=== PATIENT | male | born 1955 | race Two or more races ===

== ENCOUNTER 2020-02-17 02:10 | Inpatient (IN) | payer OTHER, MEDICAID ==
[~2020-02-17] VITALS: Ht 175.3 cm; Wt 78.0 kg
[~2020-02-17 02:10] MED LIST: INSUPOW
[2020-02-17] MEDS ORDERED: DEXTROSE (50%) 50ML SYRG IV ONE ×2 (02:30→02:45)
[2020-02-17] MEDS ORDERED: ACCU-CHEK COMFORT CURVE STRIP VI ONE ×2 (02:30→02:45)
[2020-02-17 02:46] LABS: Basophils # (auto) 0 10 ^3/uL (0-0.2); Basophils % (auto) 0.7 % (0.0-2.0); Eosinophils # (auto) 0.2 10 ^3/uL (0-0.8); Hematocrit 39.4 % (41.0-53.0); Hemoglobin 13.5 g/dL (13.5-17.5); Lymphocytes # (auto) 1.6 10 ^3/uL (0.4-5.4); Mean Corpuscular Hemoglobin 30.8 pg (28.0-32.0); Mean Corpuscular Hgb Conc. 34.3 g/dL (32.0-36.0); Mean Corpuscular Volume 89.6 fL (80.0-100.0); Monocytes # (auto) 0.4 10 ^3/uL (0-1.3); Monocytes % (auto) 7.1 % (0.0-12.0); Neutrophils # (auto) 3.3 10 ^3/uL (1.6-8.6); Neutrophils % (auto) 59.2 % (37.0-80.0); Nucleated Red Blood Cells % 0.1 %; Platelet Count (auto) 152 10^3/uL (140-450); Red Cell Distribution Width 13.4 % (11.8-14.3); White Blood Cell 5.7 10^3/uL (4.4-10.8)
[2020-02-17 03:07] LABS: INR 0.97 (0.9-1.15); Partial Thromboplastin Time 25.4 sec (23.64-32.05)
[2020-02-17 03:08] LABS: BUN/Creatinine Ratio 14.3; Potassium 3.2 mmol/L (3.5-5.1)
[2020-02-17 03:11] LABS: Bilirubin, Total 0.4 mg/dL (0.2-1.0); Total Protein 6.3 g/dL (6.4-8.2)
[2020-02-17] MEDS ORDERED: DEXTROSE 10% 1,000 ML IV ONE (04:15)
[2020-02-17] MEDS ORDERED: ONDANSETRON HCL 4 MG/2 ML VIAL IV PRN (06:15)
[2020-02-17] MEDS ORDERED: NITROGLYCERIN 0.4 MG SL TAB SL PRN (06:15)
[2020-02-17] MEDS ORDERED: DEXTROSE (50%) 50ML SYRG IV PRN (06:15)
[2020-02-17] MEDS ORDERED: TEMAZEPAM 15 MG CAP PO PRN (06:15)
[2020-02-17] MEDS ORDERED: DEXTROSE 10% 1,000 ML IV SCH (06:15)
[2020-02-17] MEDS ORDERED: MORPHINE SULF INJ 2 MG/ML SYRINGE 1ML IV PRN (06:15)
[2020-02-17] MEDS ORDERED: ACETAMINOPHEN 325 MG TAB PO PRN (06:15)
[2020-02-17] MEDS: ACCU-CHEK COMFORT CURVE STRIP VI SCH ×3 (08:04→16:00)
[2020-02-17] MEDS: InsuLIN REG 1unit/0.01ml Soln (100units/ml) SC SCH ×3 (08:04→16:00)
[2020-02-17 08:31] LABS: Urine Bacteria FEW /hpf (None Seen); Urine Blood Negative /uL (Negative); Urine Mucus FEW (None Seen); Urine Specific Gravity 1.019 (1.001-1.035); Urine WBC 1 /hpf (0 - 3)
[2020-02-17 08:59] VITALS: BP 153/86
[2020-02-17] MEDS ORDERED: ENOXAPARIN SOD 40 MG/0.4 ML SYRINGE SC SCH (10:00)
[2020-02-17] MEDS ORDERED: LISINOPRIL 5 MG TAB PO SCH (10:00)
[2020-02-17] MEDS ORDERED: FAMOTIDINE 20 MG TAB PO SCH (10:00)
[2020-02-17] MEDS ORDERED: CARVEDILOL 3.125 MG TAB PO SCH (10:00)
[2020-02-17] MEDS ORDERED: PNEUMOCOCCAL VACC POLYS 25 MCG/0.5 ML VIAL IM ONE (10:45)
[2020-02-17] MEDS ORDERED: POTASSIUM CHL 20 Meq TABLET PO ONE (10:45)
[2020-02-17 13:00] VITALS: BP 128/73
[2020-02-17 15:28] VITALS: BP 128/73
== END 2020-02-17 16:20 | disposition home health service (06) | DRG 637 ==
LOC: ER 02:10 → EDUNIT# 02:10 → EDBD 02:10 → TELE 02:11 → TELE-WESTW 08:42
PROVIDERS: ADMIT Nurse Practitioner; ATTEND Internal Medicine
DX: E10.649 Type 1 diabetes mellitus with hypoglycemia without coma (principal); G93.41 Metabolic encephalopathy; E78.5 Hyperlipidemia, unspecified; F17.200 Nicotine dependence, unspecified, uncomplicated; I10 Essential (primary) hypertension; I69.30 Unspecified sequelae of cerebral infarction; T38.3X5A Adverse effect of insulin and oral hypoglycemic [antidiabetic] drugs, initial encounter; Y92.89 Other specified places as the place of occurrence of the external cause
CPT/HCPCS: 36415; 70450; 80053; 81001; 82962; 85025; 85610; 85730; 93005; 99291; G0378; J1815

== ENCOUNTER 2022-02-08 09:29 | Inpatient (IN) | payer OTHER, MEDICAID ==
[~2022-02-08] VITALS: Ht 170.2 cm; Wt 72.0 kg
[2022-02-08] MEDS ORDERED: SODIUM CHLORIDE 0.9% 1,000 ML IV ONE ×5 (09:45→12:00)
[2022-02-08] MEDS ORDERED: InsuLIN REG 1unit/0.01ml Soln (100units/ml) ONE (10:16)
[2022-02-08] MEDS ORDERED: InsuLIN REG 1unit/0.01ml Soln (100units/ml) IV ONE ×2 (10:30→12:15)
[2022-02-08 11:13] LABS: Hemoglobin 11.8 g/dL (13.5-17.5); Mean Corpuscular Hemoglobin 33.6 pg (28.0-32.0); Mean Corpuscular Volume 119.7 fL (80.0-100.0); Red Blood Cells 3.51 10^6/uL (4.5-5.90); Red Cell Distribution Width 14.8 % (11.8-14.3); White Blood Cell 10.2 10^3/uL (4.4-10.8)
[2022-02-08 11:29] LABS: Basophils % (manual) 0 (0.0-2.0); Blast Cells 0; Eosinophils % (manual) 0 (0-7); Myelocytes % 0; Promyelocytes % 0; Reactive Lymphocytes 0
[2022-02-08] MEDS ORDERED: SODIUM BICARBONATE 8.4% INJ 50ML SYRINGE ONE (11:42)
[2022-02-08] MEDS ORDERED: SODIUM BICARBONATE 8.4 % INJ 50ML VIAL IV ONE ×2 (11:45→12:15)
[2022-02-08 11:49] LABS: Chloride 105 mmol/L (98-107)
[2022-02-08 11:50] LABS: Bilirubin, Total 0.6 mg/dL (0.2-1.0); Blood Urea Nitrogen 23 mg/dL (7-18); Calcium 7.6 mg/dL (8.5-10.1); GFR Non-African American 38 mL/min; Total Protein 5.9 g/dL (6.4-8.2)
[2022-02-08 11:51] LABS: Alanine Aminotransferase 531 U/L (16-61); Albumin 2.7 g/dL (3.4-5.0); Alkaline Phosphatase 117 U/L (45-117); Anion Gap 30 (5-15); GFR African American 45 mL/min; Magnesium 3.3 mg/dL (1.6-2.6); Sodium 137 mmol/L (136-145)
[2022-02-08 11:55] LABS: Carbon Dioxide 2 mmol/L (21-32); Potassium 6.6 mmol/L (3.5-5.1)
[2022-02-08] MEDS ORDERED: InsuLIN R (HUMAN) 100 UNITS in SODIUM CHL 0.9% 99 ML IV SCH ×6 (12:00→18:15)
[2022-02-08] MEDS ORDERED: FUROSEMIDE 40 MG/4 ML VIAL IV ONE (12:00)
[2022-02-08] MEDS ORDERED: INSULIN LANTUS (GLARGINE) 1 /0.01ml (100units/ml) SC ONE (12:00)
[2022-02-08] MEDS ORDERED: SODIUM ZIRCONIUM CYCL 10 GM PAK PO ONE (12:00)
[2022-02-08] MEDS ORDERED: DEXTROSE (50%) 50ML SYRG IV PRN ×2 (12:00→18:00)
[2022-02-08] MEDS ORDERED: SODIUM BICARBONATE 8.4% INJ 50ML SYRINGE IV ONE (12:00)
[2022-02-08] MEDS ORDERED: ALBUTEROL SULF 2.5 MG/0.5ML(0.5%) NEB SOLN NEB ONE (12:00)
[2022-02-08] MEDS ORDERED: PIPERACILLIN-TAZOB 3.375GM 100 ML IV ONE (12:00)
[2022-02-08] MEDS ORDERED: CALCIUM GLUC 1,000mg/50ml-NS 50 ML IV ONE (12:00)
[2022-02-08 12:24] LABS: Glucose 763 mg/dL (74-106)
[2022-02-08 12:35] LABS: Band Neutrophils % (manual) 36; Lymphocytes % (manual) 22 (10.0-50.0); Metamyelocytes % 4; Monocytes % (manual) 8 (0-12)
[2022-02-08] MEDS: ACCU-CHEK COMFORT CURVE STRIP VI SCH ×7 (12:38→22:30)
[2022-02-08 12:55] LABS: Aspartate Aminotransferase 985 U/L (15-37)
[2022-02-08] MEDS: SODIUM CHLORIDE 0.9% 1,000 ML IV SCH ×3 (12:59→18:02)
[2022-02-08] MEDS ORDERED: NOREPINEPHRINE 8 MG/250ML KIT 250 ML IV ONE (13:50)
[2022-02-08] MEDS ORDERED: dilTIAZem 25 MG/5 ML VIAL IV ONE (14:45)
[2022-02-08] MEDS ORDERED: NOREPINEPHRINE 8 MG/250ML KIT 250 ML IV SCH (15:30)
[2022-02-08 15:41] LABS: Albumin 2.6 g/dL (3.4-5.0); BUN/Creatinine Ratio 13.5; Calcium 6.8 mg/dL (8.5-10.1)
[2022-02-08] MEDS ORDERED: dilTIAZem 25 MG/5 ML VIAL IV PRN (15:45)
[2022-02-08 15:49] LABS: Bilirubin, Total 0.6 mg/dL (0.2-1.0)
[2022-02-08] MEDS ORDERED: SODIUM CHLORIDE 0.9% 1,000 ML IV SCH (16:00)
[2022-02-08] MEDS: LORazepam 2MG/ML-1ML VIAL IV PRN (16:40)
[2022-02-08 17:28] LABS: Sodium Urine 80 mmol/L (40-220)
[2022-02-08 17:38] LABS: Creatinine, Urine 13 mg/dL (30.0-125.0)
[2022-02-08 18:00] LABS: Urine Bacteria NONE SEEN /hpf (None Seen); Urine Blood 2+ /uL (Negative); Urine Hyaline Cast FEW /lpf (0 - 2); Urine Mucus FEW (None Seen); Urine Specific Gravity 1.013 (1.001-1.035); Urine WBC 1 /hpf (0 - 3)
[2022-02-08] MEDS ORDERED: HEPARIN SODIUM (PORCINE) 5000 UNITS/ML 1ML VIAL IV ONE (18:45)
[2022-02-08 19:53] LABS: INR 1.2 (0.9-1.15); Partial Thromboplastin Time 22.8 sec (23.6-33.0)
[2022-02-08 20:04] LABS: Calcium 7.1 mg/dL (8.5-10.1); Potassium 4.5 mmol/L (3.5-5.1)
[2022-02-08 20:16] LABS: BUN/Creatinine Ratio 11.9
[2022-02-08] MEDS: HEPARIN DRIP/D5W 100UNITS/ML 250 ML IV SCH (20:46)
[2022-02-08 21:47] LABS: Eosinophils # (auto) 0 10 ^3/uL (0-0.8); Nucleated Red Blood Cells % 0.2 %; Red Cell Distribution Width 14.9 % (11.8-14.3)
[2022-02-08 21:48] LABS: Basophils # (auto) 0 10 ^3/uL (0-0.2); Basophils % (auto) 0.5 % (0.0-2.0); Eosinophils % (auto) 0.4 % (0.0-7.0); Hemoglobin 11.2 g/dL (13.5-17.5); Lymphocytes # (auto) 1.1 10 ^3/uL (0.4-5.4); Lymphocytes % (auto) 11.5 % (10.0-50.0); Mean Corpuscular Hemoglobin 33.8 pg (28.0-32.0); Mean Corpuscular Hgb Conc. 30.4 g/dL (32.0-36.0); Mean Corpuscular Volume 111.4 fL (80.0-100.0); Monocytes # (auto) 0.5 10 ^3/uL (0-1.3); Monocytes % (auto) 5.4 % (0.0-12.0); Neutrophils # (auto) 7.7 10 ^3/uL (1.6-8.6); Neutrophils % (auto) 82.2 % (37.0-80.0); Red Blood Cells 3.32 10^6/uL (4.5-5.90); White Blood Cell 9.4 10^3/uL (4.4-10.8)
[2022-02-08] MEDS ORDERED: SODIUM BICARBONATE 50ML VIAL 100 ML in SOD CHL 0.45% 1,000 ML IV ONE (22:00)
[2022-02-08] MEDS ORDERED: CALCIUM GLUC 1,000mg/50ml-NS 100 ML IV ONE (22:00)
[2022-02-08] MEDS ORDERED: SODIUM BICARBONATE 50ML VIAL 100 ML in SOD CHL 0.45% 1,000 ML IV SCH ×4 (22:15)
[2022-02-08] MEDS: SODIUM BICARBONATE 50ML VIAL 100 ML in SOD CHL 0.45% 1,000 ML IV SCH (22:44)
[2022-02-08 23:00] LABS: Calcium 7.2 mg/dL (8.5-10.1)
[2022-02-08] MEDS: VALPROATE INJ 500 MG in SODIUM CHL 0.9% 100 ML IV SCH (23:00)
[2022-02-08 23:09] LABS: BUN/Creatinine Ratio 11.9
[2022-02-09] MEDS: LORazepam 2MG/ML-1ML VIAL IV PRN ×3 (00:05→22:23)
[2022-02-09] MEDS: SODIUM CHLORIDE 0.9% 1,000 ML IV SCH ×2 (00:40→07:20)
[2022-02-09] MEDS: ACCU-CHEK COMFORT CURVE STRIP VI SCH ×12 (01:30→20:00)
[2022-02-09 05:26] LABS: INR 1.28 (0.9-1.15); Partial Thromboplastin Time 48.1 sec (23.6-33.0)
[2022-02-09] MEDS: SODIUM BICARBONATE 50ML VIAL 100 ML in SOD CHL 0.45% 1,000 ML IV SCH (06:04)
[2022-02-09 06:47] LABS: BUN/Creatinine Ratio 9.6; Calcium 7.6 mg/dL (8.5-10.1)
[2022-02-09 06:51] LABS: Potassium 2.8 mmol/L (3.5-5.1)
[2022-02-09] MEDS ORDERED: D5W/SOD CHL 0.45%/KCL 20MEQ 1,000 ML IV ONE (07:00)
[2022-02-09] MEDS: VALPROATE INJ 500 MG in SODIUM CHL 0.9% 100 ML IV SCH ×2 (10:00→23:28)
[2022-02-09] MEDS: INSULIN LANTUS (GLARGINE) 1 /0.01ml (100units/ml) SC SCH (10:00)
[2022-02-09 11:26] LABS: Basophils # (auto) 0.1 10 ^3/uL (0-0.2); Eosinophils # (auto) 0 10 ^3/uL (0-0.8); Lymphocytes # (auto) 0.3 10 ^3/uL (0.4-5.4); Monocytes # (auto) 0.2 10 ^3/uL (0-1.3); Neutrophils # (auto) 4.7 10 ^3/uL (1.6-8.6); Nucleated Red Blood Cells % 0.1 %; Red Blood Cells 2.24 10^6/uL (4.5-5.90)
[2022-02-09 11:28] LABS: Eosinophils % (auto) 0.1 % (0.0-7.0); Hematocrit 23.4 % (41.0-53.0); Hemoglobin 7.5 g/dL (13.5-17.5); Lymphocytes % (auto) 5.3 % (10.0-50.0); Mean Corpuscular Hemoglobin 33.6 pg (28.0-32.0); Mean Corpuscular Hgb Conc. 32.3 g/dL (32.0-36.0); Mean Corpuscular Volume 104.1 fL (80.0-100.0); Monocytes % (auto) 3.4 % (0.0-12.0); Neutrophils % (auto) 90.2 % (37.0-80.0); Red Cell Distribution Width 13.9 % (11.8-14.3); White Blood Cell 5.2 10^3/uL (4.4-10.8)
[2022-02-09] MEDS ORDERED: PHENYTOIN IV DILANTIN 500 MG in SODIUM CHL 0.9% 100 ML IV ONE ×2 (12:30→14:00)
[2022-02-09 13:47] LABS: Basophils # (auto) 0 10 ^3/uL (0-0.2); Basophils % (auto) 0.2 % (0.0-2.0); Eosinophils # (auto) 0 10 ^3/uL (0-0.8); Hematocrit 32.1 % (41.0-53.0); Hemoglobin 11.1 g/dL (13.5-17.5); Lymphocytes # (auto) 0.4 10 ^3/uL (0.4-5.4); Lymphocytes % (auto) 5.3 % (10.0-50.0); Mean Corpuscular Hemoglobin 33.1 pg (28.0-32.0); Mean Corpuscular Hgb Conc. 34.7 g/dL (32.0-36.0); Mean Corpuscular Volume 95.3 fL (80.0-100.0); Monocytes # (auto) 0.2 10 ^3/uL (0-1.3); Monocytes % (auto) 3.3 % (0.0-12.0); Neutrophils # (auto) 6.7 10 ^3/uL (1.6-8.6); Neutrophils % (auto) 91.2 % (37.0-80.0); Nucleated Red Blood Cells % 0.1 %; Red Blood Cells 3.37 10^6/uL (4.5-5.90); Red Cell Distribution Width 12.8 % (11.8-14.3); White Blood Cell 7.4 10^3/uL (4.4-10.8)
[2022-02-09 14:05] LABS: BUN/Creatinine Ratio 9.6; Calcium 7.4 mg/dL (8.5-10.1); Potassium 3.1 mmol/L (3.5-5.1)
[2022-02-09 14:14] LABS: Phosphorus 0.8 mg/dL (2.5-4.90)
[2022-02-09] MEDS ORDERED: POTASSIUM PHOSPHATE 44 MEQ in D5W 5% 250 ML IV ONE (14:30)
[2022-02-09] MEDS ORDERED: DEXTROSE (50%) 50ML SYRG IV PRN (15:00)
[2022-02-09] MEDS: HEPARIN DRIP/D5W 100UNITS/ML 250 ML IV SCH (15:55)
[2022-02-09] MEDS: InsuLIN REG 1unit/0.01ml Soln (100units/ml) SC SCH ×2 (16:12→21:45)
[2022-02-09] MEDS: SOD CHL 0.45% 1,000 ML IV SCH (16:59)
[2022-02-09 23:38] LABS: BUN/Creatinine Ratio 9.3; Calcium 7.4 mg/dL (8.5-10.1); Phosphorus 3.2 mg/dL (2.5-4.90); Potassium 3.9 mmol/L (3.5-5.1)
[2022-02-10] MEDS: ACCU-CHEK COMFORT CURVE STRIP VI SCH ×7 (00:27→23:44)
[2022-02-10] MEDS: InsuLIN REG 1unit/0.01ml Soln (100units/ml) SC SCH ×7 (00:30→23:44)
[2022-02-10] MEDS: SOD CHL 0.45% 1,000 ML IV SCH (00:30)
[2022-02-10 00:45] VITALS: BP 125/55
[2022-02-10 06:06] LABS: Basophils # (auto) 0 10 ^3/uL (0-0.2); Basophils % (auto) 0.1 % (0.0-2.0); Eosinophils # (auto) 0 10 ^3/uL (0-0.8); Lymphocytes # (auto) 0.6 10 ^3/uL (0.4-5.4); Lymphocytes % (auto) 7.8 % (10.0-50.0); Mean Corpuscular Hemoglobin 33.3 pg (28.0-32.0); Mean Corpuscular Hgb Conc. 34.5 g/dL (32.0-36.0); Mean Corpuscular Volume 96.3 fL (80.0-100.0); Monocytes # (auto) 0.4 10 ^3/uL (0-1.3); Monocytes % (auto) 4.7 % (0.0-12.0); Neutrophils # (auto) 6.8 10 ^3/uL (1.6-8.6); Neutrophils % (auto) 87.4 % (37.0-80.0); Red Blood Cells 3.32 10^6/uL (4.5-5.90); Red Cell Distribution Width 13.2 % (11.8-14.3); White Blood Cell 7.8 10^3/uL (4.4-10.8)
[2022-02-10 06:12] LABS: Potassium 3.3 mmol/L (3.5-5.1)
[2022-02-10 06:17] LABS: Albumin 2.4 g/dL (3.4-5.0); BUN/Creatinine Ratio 8.9; Calcium 7.4 mg/dL (8.5-10.1)
[2022-02-10 06:20] LABS: Bilirubin, Total 0.4 mg/dL (0.2-1.0); Total Protein 4.9 g/dL (6.4-8.2)
[2022-02-10 06:21] LABS: INR 1.08 (0.9-1.15); Partial Thromboplastin Time 25.6 sec (23.6-33.0)
[2022-02-10 07:46] VITALS: BP 147/83
[2022-02-10] MEDS: D5W 5% 1,000 ML IV SCH ×3 (08:56→22:55)
[2022-02-10 10:37] LABS: Calcium 7.4 mg/dL (8.5-10.1); Potassium 3.3 mmol/L (3.5-5.1)
[2022-02-10] MEDS: PHENYTOIN SODIUM 50 MG/ML 2ML VIAL IV SCH (10:37)
[2022-02-10 10:38] LABS: BUN/Creatinine Ratio 10.2
[2022-02-10] MEDS: LORazepam 2MG/ML-1ML VIAL IV PRN (10:38)
[2022-02-10] MEDS: INSULIN LANTUS (GLARGINE) 1 /0.01ml (100units/ml) SC SCH (10:47)
[2022-02-10] MEDS: POTASSIUM CHL 20MEQ/100ML 100 ML IV SCH ×2 (11:14→12:46)
[2022-02-10 12:06] VITALS: BP 143/78
[2022-02-10] MEDS ORDERED: DULA4.5I SC (13:14)
[2022-02-10] MEDS ORDERED: GLIP10TA9 PO (13:14)
[2022-02-10] MEDS ORDERED: DIVA500T13 PO (13:14)
[2022-02-10] MEDS ORDERED: INSU100I4 SC (13:14)
[2022-02-10] MEDS ORDERED: CHOL20007 PO (13:14)
[2022-02-10] MEDS ORDERED: CARV3.1240 PO (13:14)
[2022-02-10] MEDS ORDERED: ATOR40TA52 PO (13:14)
[2022-02-10] MEDS ORDERED: GABA300C10 PO (13:14)
[2022-02-10] MEDS ORDERED: DONE5TAB80 PO (13:14)
[2022-02-10] MEDS ORDERED: EMPA1TAB3 PO (13:14)
[2022-02-10 15:16] LABS: BUN/Creatinine Ratio 9.7; Calcium 7.1 mg/dL (8.5-10.1); Potassium 3.9 mmol/L (3.5-5.1)
[2022-02-10 17:09] VITALS: BP 115/63
[2022-02-10 18:25] LABS: BUN/Creatinine Ratio 9.4; Calcium 7.3 mg/dL (8.5-10.1); Potassium 3.5 mmol/L (3.5-5.1)
[2022-02-10 22:00] VITALS: BP 140/81
[2022-02-10 23:10] LABS: Calcium 7.4 mg/dL (8.5-10.1); Potassium 3.1 mmol/L (3.5-5.1)
[2022-02-10 23:12] LABS: BUN/Creatinine Ratio 10.2
[2022-02-11] MEDS: ACCU-CHEK COMFORT CURVE STRIP VI SCH ×6 (03:56→23:33)
[2022-02-11] MEDS: InsuLIN REG 1unit/0.01ml Soln (100units/ml) SC SCH ×6 (04:07→23:33)
[2022-02-11 05:01] VITALS: BP 127/63
[2022-02-11 06:27] LABS: Basophils # (auto) 0 10 ^3/uL (0-0.2); Basophils % (auto) 0.4 % (0.0-2.0); Eosinophils # (auto) 0.1 10 ^3/uL (0-0.8); Eosinophils % (auto) 0.7 % (0.0-7.0); Hematocrit 29.3 % (41.0-53.0); Hemoglobin 10.4 g/dL (13.5-17.5); Lymphocytes # (auto) 1.4 10 ^3/uL (0.4-5.4); Lymphocytes % (auto) 18.5 % (10.0-50.0); Mean Corpuscular Hemoglobin 33.4 pg (28.0-32.0); Mean Corpuscular Hgb Conc. 35.5 g/dL (32.0-36.0); Mean Corpuscular Volume 94.3 fL (80.0-100.0); Monocytes # (auto) 0.4 10 ^3/uL (0-1.3); Monocytes % (auto) 5.5 % (0.0-12.0); Neutrophils # (auto) 5.9 10 ^3/uL (1.6-8.6); Neutrophils % (auto) 74.9 % (37.0-80.0); Red Blood Cells 3.11 10^6/uL (4.5-5.90); Red Cell Distribution Width 13.2 % (11.8-14.3); White Blood Cell 7.8 10^3/uL (4.4-10.8)
[2022-02-11 06:51] LABS: BUN/Creatinine Ratio 9.9; Calcium 7.2 mg/dL (8.5-10.1)
[2022-02-11 07:05] LABS: Bilirubin, Total 0.4 mg/dL (0.2-1.0); Total Protein 4.3 g/dL (6.4-8.2)
[2022-02-11 07:11] LABS: Potassium 2.9 mmol/L (3.5-5.1)
[2022-02-11 08:00] VITALS: BP 115/68
[2022-02-11 09:00] VITALS: BP 115/68
[2022-02-11] MEDS: PHENYTOIN SODIUM 50 MG/ML 2ML VIAL IV SCH (09:13)
[2022-02-11] MEDS: POTASSIUM CHL 20MEQ/100ML 100 ML IV SCH ×2 (09:13→12:01)
[2022-02-11] MEDS: INSULIN LANTUS (GLARGINE) 1 /0.01ml (100units/ml) SC SCH (09:20)
[2022-02-11] MEDS ORDERED: POTASSIUM CHL 20MEQ/100ML 100 ML IV SCH (11:30)
[2022-02-11 13:33] VITALS: BP 136/80
[2022-02-11] MEDS: SOD CHL 0.45% 1,000 ML IV SCH ×2 (13:35→21:30)
[2022-02-11 16:46] VITALS: BP 132/78
[2022-02-11 18:34] LABS: BUN/Creatinine Ratio 10.3; Calcium 7.6 mg/dL (8.5-10.1); Potassium 3.6 mmol/L (3.5-5.1)
[2022-02-11 22:00] VITALS: BP 124/81
[2022-02-11] MEDS ORDERED: DEXTROSE (50%) 50ML SYRG IV ONE (23:45)
[2022-02-12] MEDS: D5W/SOD CHL 0.45% 1,000 ML IV SCH ×2 (00:23→13:59)
[2022-02-12] MEDS: ACCU-CHEK COMFORT CURVE STRIP VI SCH ×5 (03:26→22:04)
[2022-02-12] MEDS: InsuLIN REG 1unit/0.01ml Soln (100units/ml) SC SCH ×5 (03:27→22:05)
[2022-02-12 05:00] VITALS: BP 139/84
[2022-02-12 06:18] LABS: Potassium 3.4 mmol/L (3.5-5.1)
[2022-02-12 06:23] LABS: Basophils # (auto) 0 10 ^3/uL (0-0.2); Basophils % (auto) 0.5 % (0.0-2.0); Eosinophils # (auto) 0.2 10 ^3/uL (0-0.8); Eosinophils % (auto) 2.3 % (0.0-7.0); Hematocrit 31.8 % (41.0-53.0); Hemoglobin 11.1 g/dL (13.5-17.5); Lymphocytes # (auto) 1.3 10 ^3/uL (0.4-5.4); Lymphocytes % (auto) 19.3 % (10.0-50.0); Mean Corpuscular Hemoglobin 32.8 pg (28.0-32.0); Mean Corpuscular Volume 93.9 fL (80.0-100.0); Monocytes # (auto) 0.6 10 ^3/uL (0-1.3); Monocytes % (auto) 9.2 % (0.0-12.0); Neutrophils # (auto) 4.6 10 ^3/uL (1.6-8.6); Neutrophils % (auto) 68.7 % (37.0-80.0); Red Blood Cells 3.38 10^6/uL (4.5-5.90); Red Cell Distribution Width 13.1 % (11.8-14.3); White Blood Cell 6.7 10^3/uL (4.4-10.8)
[2022-02-12 06:28] LABS: Albumin 2.1 g/dL (3.4-5.0); BUN/Creatinine Ratio 10.5; Bilirubin, Total 0.5 mg/dL (0.2-1.0); Calcium 7.6 mg/dL (8.5-10.1); Total Protein 4.6 g/dL (6.4-8.2)
[2022-02-12 08:00] VITALS: BP 162/96
[2022-02-12 08:34] VITALS: BP 162/96
[2022-02-12] MEDS: PHENYTOIN SODIUM 50 MG/ML 2ML VIAL IV SCH (10:19)
[2022-02-12] MEDS: INSULIN LANTUS (GLARGINE) 1 /0.01ml (100units/ml) SC SCH (10:20)
[2022-02-12] MEDS ORDERED: DEXTROSE (50%) 50ML SYRG IV PRN (10:30)
[2022-02-12 12:36] VITALS: BP 156/84
[2022-02-12] MEDS: POTASSIUM CHL 20MEQ/100ML 100 ML IV SCH ×2 (13:59→17:18)
[2022-02-12 17:25] VITALS: BP 116/79
[2022-02-12] MEDS: SOD CHL 0.45% 1,000 ML IV SCH ×2 (17:30→17:37)
[2022-02-13] MEDS: ACCU-CHEK COMFORT CURVE STRIP VI SCH ×4 (06:20→21:10)
[2022-02-13] MEDS: InsuLIN REG 1unit/0.01ml Soln (100units/ml) SC SCH ×4 (06:21→21:16)
[2022-02-13 06:57] LABS: Albumin 1.9 g/dL (3.4-5.0); Calcium 7.4 mg/dL (8.5-10.1); Potassium 3.3 mmol/L (3.5-5.1)
[2022-02-13 07:02] LABS: BUN/Creatinine Ratio 12.7; Bilirubin, Total 0.5 mg/dL (0.2-1.0); Total Protein 4.6 g/dL (6.4-8.2)
[2022-02-13] MEDS: SOD CHL 0.45% 1,000 ML IV SCH ×3 (07:30→23:30)
[2022-02-13] MEDS: D5W/SOD CHL 0.45% 1,000 ML IV SCH ×3 (07:30→21:11)
[2022-02-13 07:36] LABS: Basophils # (auto) 0.1 10 ^3/uL (0-0.2); Basophils % (auto) 1.8 % (0.0-2.0); Eosinophils # (auto) 0.4 10 ^3/uL (0-0.8); Eosinophils % (auto) 6.5 % (0.0-7.0); Hematocrit 31.6 % (41.0-53.0); Hemoglobin 10.7 g/dL (13.5-17.5); Lymphocytes # (auto) 1.2 10 ^3/uL (0.4-5.4); Lymphocytes % (auto) 20.7 % (10.0-50.0); Mean Corpuscular Hgb Conc. 33.9 g/dL (32.0-36.0); Mean Corpuscular Volume 97.3 fL (80.0-100.0); Monocytes # (auto) 0.7 10 ^3/uL (0-1.3); Monocytes % (auto) 12.1 % (0.0-12.0); Neutrophils # (auto) 3.4 10 ^3/uL (1.6-8.6); Neutrophils % (auto) 58.9 % (37.0-80.0); Red Blood Cells 3.25 10^6/uL (4.5-5.90); Red Cell Distribution Width 13.2 % (11.8-14.3); White Blood Cell 5.7 10^3/uL (4.4-10.8)
[2022-02-13 08:30] VITALS: BP 151/73
[2022-02-13 09:00] VITALS: BP 151/73
[2022-02-13] MEDS: INSULIN LANTUS (GLARGINE) 1 /0.01ml (100units/ml) SC SCH (10:52)
[2022-02-13] MEDS: PHENYTOIN SODIUM 50 MG/ML 2ML VIAL IV SCH (12:59)
[2022-02-13 13:00] VITALS: BP 147/87
[2022-02-13] MEDS ORDERED: HYDROmorphone HCL 2 MG/ML VL/or syr IV PRN (13:00)
[2022-02-13] MEDS ORDERED: POTASSIUM CHL 20 Meq TABLET PO ONE (15:00)
[2022-02-13 17:00] VITALS: BP 140/73
[2022-02-13 22:00] VITALS: BP 151/73
[2022-02-14 04:37] VITALS: BP 155/72
[2022-02-14 05:14] LABS: Basophils # (auto) 0 10 ^3/uL (0-0.2); Basophils % (auto) 0.4 % (0.0-2.0); Eosinophils # (auto) 0.3 10 ^3/uL (0-0.8); Eosinophils % (auto) 6.3 % (0.0-7.0); Hematocrit 28.5 % (41.0-53.0); Hemoglobin 10.1 g/dL (13.5-17.5); Lymphocytes # (auto) 1.3 10 ^3/uL (0.4-5.4); Lymphocytes % (auto) 24.2 % (10.0-50.0); Mean Corpuscular Hemoglobin 33.4 pg (28.0-32.0); Mean Corpuscular Hgb Conc. 35.3 g/dL (32.0-36.0); Mean Corpuscular Volume 94.5 fL (80.0-100.0); Monocytes # (auto) 0.9 10 ^3/uL (0-1.3); Monocytes % (auto) 17.1 % (0.0-12.0); Neutrophils # (auto) 2.9 10 ^3/uL (1.6-8.6); Nucleated Red Blood Cells % 0.1 %; Red Blood Cells 3.01 10^6/uL (4.5-5.90); Red Cell Distribution Width 12.7 % (11.8-14.3); White Blood Cell 5.5 10^3/uL (4.4-10.8)
[2022-02-14 05:27] LABS: Albumin 1.8 g/dL (3.4-5.0); BUN/Creatinine Ratio 12.7; Calcium 7.4 mg/dL (8.5-10.1); Potassium 3.3 mmol/L (3.5-5.1)
[2022-02-14 05:30] LABS: Bilirubin, Total 0.4 mg/dL (0.2-1.0); Total Protein 4.4 g/dL (6.4-8.2)
[2022-02-14] MEDS: InsuLIN REG 1unit/0.01ml Soln (100units/ml) SC SCH ×4 (06:11→17:00)
[2022-02-14] MEDS: ACCU-CHEK COMFORT CURVE STRIP VI SCH ×3 (06:12→17:00)
[2022-02-14 08:30] VITALS: BP 146/77
[2022-02-14 09:30] VITALS: BP 146/77
[2022-02-14] MEDS: SOD CHL 0.45% 1,000 ML IV SCH (09:30)
[2022-02-14] MEDS: PHENYTOIN SODIUM 50 MG/ML 2ML VIAL IV SCH (10:06)
[2022-02-14] MEDS: POTASSIUM CHL 20MEQ/100ML 100 ML IV SCH ×2 (10:08→12:10)
[2022-02-14] MEDS: INSULIN LANTUS (GLARGINE) 1 /0.01ml (100units/ml) SC SCH (10:30)
[2022-02-14 13:00] VITALS: BP 139/77
[2022-02-14 16:07] VITALS: BP 81/47
[2022-02-14 16:28] VITALS: BP 141/72
== END 2022-02-14 18:00 | disposition hospice, inpatient (51) | DRG 280 ==
LOC: EDBD 09:29 → ER 09:29 → OVERFLOW 15:13 → TELE-WESTW 02-09 22:39
PROVIDERS: ADMIT Internal Medicine; ATTEND Internal Medicine
DX: I21.4 Non-ST elevation (NSTEMI) myocardial infarction (principal); E11.10 Type 2 diabetes mellitus with ketoacidosis without coma; N17.0 Acute kidney failure with tubular necrosis; G92.8 Other toxic encephalopathy; E87.0 Hyperosmolality and hypernatremia; D63.1 Anemia in chronic kidney disease; E87.5 Hyperkalemia; F03.90 Unspecified dementia, unspecified severity, without behavioral disturbance, psychotic disturbance, mood disturbance, and anxiety; E11.22 Type 2 diabetes mellitus with diabetic chronic kidney disease; G40.909 Epilepsy, unspecified, not intractable, without status epilepticus; I12.9 Hypertensive chronic kidney disease with stage 1 through stage 4 chronic kidney disease, or unspecified chronic kidney disease; R68.0 Hypothermia, not associated with low environmental temperature; E87.6 Hypokalemia; I48.91 Unspecified atrial fibrillation; Z20.822 Contact with and (suspected) exposure to COVID-19; N18.9 Chronic kidney disease, unspecified; Z80.6 Family history of leukemia; Z83.3 Family history of diabetes mellitus; Z86.73 Personal history of transient ischemic attack (TIA), and cerebral infarction without residual deficits; Z91.14 Patient's other noncompliance with medication regimen
CPT/HCPCS: 36415; 36600; 70450; 71045; 76775; 80048; 80053; 80164; 80185; 81001; 82010; 82140; 82570; 82805; 82962; 83036; 83735; 83930; 84100; 84132; 84300; 84484; 85007; 85025; 85027; 85610; 85730; 92610; 93005; 93306; 94640; 95819; 96361; 96374; 97110; 97116; 97530; 99291; G0378; J1815; J2543; J3480; J7060

== ENCOUNTER 2022-09-13 21:11 | Inpatient (IN) | payer OTHER, MEDICAID ==
[~2022-09-13] VITALS: Ht 175.3 cm; Wt 78.9 kg
[~2022-09-13 21:11] MED LIST changes: +ATOR40TA52 PO; +CARV3.1240 PO; +CHOL20007 PO; +DIVA500T13 PO; +DONE5TAB80 PO; +DULA4.5I SC; +EMPA1TAB3 PO; +GABA300C10 PO; +GLIP10TA9 PO; +INSU100I4 SC; -INSUPOW
[2022-09-13] MEDS ORDERED: ROCURONIUM 10MG/ML 10ML VIAL IV ONE ×2 (21:24→22:30)
[2022-09-13] MEDS ORDERED: ETOMIDATE (2MG/ML) 20ML VIAL IV ONE ×2 (21:26→22:30)
[2022-09-13] MEDS ORDERED: fentaNYL Drip 2500mCg/250mlNS 250 ML IV ONE (21:32)
[2022-09-13] MEDS ORDERED: MIDAZOLAM DRIP 50 mg/50mL 50 ML IV ONE (21:33)
[2022-09-13] MEDS: MIDAZOLAM DRIP 50 mg/50mL 50 ML IV SCH (21:48)
[2022-09-13] MEDS: fentaNYL Drip 2500mCg/250mlNS 250 ML IV SCH (21:48)
[2022-09-13 22:55] LABS: Urine WBC None Seen /hpf (0 - 3)
[2022-09-13 23:09] LABS: Urine Bacteria FEW /hpf (None Seen); Urine Blood Negative /uL (Negative); Urine Specific Gravity 1.024 (1.001-1.035)
[2022-09-13 23:22] LABS: Hemoglobin 11.9 g/dL (13.5-17.5)
[2022-09-13 23:25] LABS: Hematocrit 43.7 % (41.0-53.0); Mean Corpuscular Hemoglobin 31.1 pg (28.0-32.0); Mean Corpuscular Hgb Conc. 27.3 g/dL (32.0-36.0); Mean Corpuscular Volume 113.8 fL (80.0-100.0); Red Blood Cells 3.84 10^6/uL (4.5-5.90); Red Cell Distribution Width 17.6 % (11.8-14.3)
[2022-09-13 23:27] LABS: Alcohol, Urine < 3.0 mg/dL (0-10); Amphetamine Screen, Urine NEGATIVE (NEGATIVE); Barbiturate Scree,Urine NEGATIVE (NEGATIVE); Benzodiazephine Screen, Urine NEGATIVE (NEGATIVE); Cannabinoid Screen, Urine NEGATIVE (NEGATIVE); Cocaine Screen, Urine NEGATIVE (NEGATIVE); Opiate Scree,Urine NEGATIVE (NEGATIVE); Phencyclidine Screen, Urine NEGATIVE (NEGATIVE)
[2022-09-13 23:27] LABS: Basophils % (manual) 0 (0.0-2.0); Blast Cells 0; Eosinophils % (manual) 0 (0-7); Metamyelocytes % 0; Myelocytes % 0; Promyelocytes % 0; Reactive Lymphocytes 0
[2022-09-13 23:30] VITALS: BP 83/41
[2022-09-13 23:38] LABS: INR 0.97 (0.9-1.15); Partial Thromboplastin Time 26.5 sec (24.6-33.4)
[2022-09-13 23:52] LABS: Alanine Aminotransferase 42 U/L (16-61); Aspartate Aminotransferase 77 U/L (15-37); GFR African American 45 mL/min; GFR Non-African American 38 mL/min; Lipase 58 U/L (73-393)
[2022-09-13 23:53] LABS: Lactic Acid w/Reflex 9.2 mmol/L (0.4-2.0)
[2022-09-13 23:55] VITALS: BP 123/54
[2022-09-13 23:57] LABS: Acetaminophen < 2.0 ug/mL (10-30); Salicylate 3.8 mg/dL (2.8-20.0)
[2022-09-14] VITALS (10 sets, daily range): BP systolic 74–137; BP diastolic 37–77
[2022-09-14 00:34] LABS: Sodium 131 mmol/L (136-145)
[2022-09-14 00:35] LABS: Albumin 3.4 g/dL (3.4-5.0); Alkaline Phosphatase 119 U/L (45-117); Anion Gap 28 (5-15); BUN/Creatinine Ratio 16.1; Bilirubin, Total 0.6 mg/dL (0.2-1.0); Blood Urea Nitrogen 31 mg/dL (7-18); Calcium 8.9 mg/dL (8.5-10.1); Chloride 95 mmol/L (98-107); Total Protein 6.7 g/dL (6.4-8.2)
[2022-09-14 00:38] LABS: Carbon Dioxide 8 mmol/L (21-32); Glucose 1024 mg/dL (74-106); Potassium 7.6 mmol/L (3.5-5.1)
[2022-09-14] MEDS ORDERED: VANCOMYCIN 1GM/250ML 250 ML IV ONE ×2 (01:15→08:30)
[2022-09-14] MEDS ORDERED: PIPERACILLIN-TAZOB 3.375GM 100 ML IV ONE (01:15)
[2022-09-14] MEDS ORDERED: LACTATED RINGER S IV ONE (01:15)
[2022-09-14] MEDS ORDERED: SODIUM BICARBONATE 8.4 % INJ 50ML VIAL IV ONE ×2 (01:16→13:00)
[2022-09-14 01:25] LABS: Lactic Acid w/Reflex 8.5 mmol/L (0.4-2.0)
[2022-09-14] MEDS ORDERED: SODIUM BICARBONATE 50ML VIAL 50 ML in SOD CHL 0.45% 1,000 ML IV ONE (01:30)
[2022-09-14 02:06] LABS: Band Neutrophils % (manual) 9; Lymphocytes % (manual) 22 (10.0-50.0); Monocytes % (manual) 1 (0-12)
[2022-09-14] MEDS ORDERED: POTASSIUM CHL 20MEQ/100ML 100 ML IV PRN (02:30)
[2022-09-14] MEDS ORDERED: InsuLIN R (HUMAN) 100 UNITS in SODIUM CHL 0.9% 99 ML IV SCH ×3 (02:30→23:15)
[2022-09-14] MEDS ORDERED: DEXTROSE (50%) 50ML SYRG IV PRN ×2 (02:30→23:15)
[2022-09-14] MEDS ORDERED: POTASSIUM CHL 20MEQ/100ML 200 ML IV PRN (02:30)
[2022-09-14] MEDS ORDERED: MAGNESIUM SULFATE 1GM/100ML 200 ML IV ONE (02:30)
[2022-09-14] MEDS ORDERED: CALCIUM GLUC 1,000mg/50ml-NS 50 ML IV ONE (02:45)
[2022-09-14] MEDS ORDERED: NOREPINEPHRINE 8 MG/250ML KIT 250 ML IV ONE (02:51)
[2022-09-14] MEDS: NOREPINEPHRINE 8 MG/250ML KIT 250 ML IV SCH ×2 (02:59→08:15)
[2022-09-14] MEDS: ACCU-CHEK COMFORT CURVE STRIP VI SCH ×14 (03:00→23:02)
[2022-09-14] MEDS ORDERED: InsuLIN REG 1unit/0.01ml Soln (100units/ml) ONE (03:21)
[2022-09-14 03:24] LABS: BUN/Creatinine Ratio 15.4; Calcium 7.3 mg/dL (8.5-10.1)
[2022-09-14 03:28] LABS: Potassium 7.8 mmol/L (3.5-5.1)
[2022-09-14] MEDS: SODIUM CHLORIDE 0.9% 1,000 ML IV SCH ×5 (03:45→15:37)
[2022-09-14] MEDS ORDERED: SODIUM CHLORIDE 0.9% 1,000 ML IV SCH (06:30)
[2022-09-14] MEDS ORDERED: VANCOMYCIN PER PHARMACY 0 MG IV SCH (08:15)
[2022-09-14] MEDS ORDERED: SODIUM CHLORIDE 0.9% 1,000 ML IV ONE (08:15)
[2022-09-14] MEDS ORDERED: NITROGLYCERIN 0.4 MG SL TAB SL PRN (08:15)
[2022-09-14] MEDS ORDERED: MORPHINE SULFATE INJ 2 MG/ml SYRG IV PRN (08:15)
[2022-09-14 11:11] LABS: Hemoglobin 11.1 g/dL (13.5-17.5); Mean Corpuscular Hemoglobin 31.4 pg (28.0-32.0); Mean Corpuscular Hgb Conc. 31.6 g/dL (32.0-36.0); Mean Corpuscular Volume 99.5 fL (80.0-100.0); Red Blood Cells 3.52 10^6/uL (4.5-5.90); Red Cell Distribution Width 17.4 % (11.8-14.3); White Blood Cell 12.6 10^3/uL (4.4-10.8)
[2022-09-14 11:20] LABS: Basophils % (manual) 0 (0.0-2.0); Blast Cells 0; Eosinophils % (manual) 0 (0-7); Promyelocytes % 0; Reactive Lymphocytes 0
[2022-09-14] MEDS: PIPERACILLIN-TAZOB 3.375GM 100 ML IV SCH ×3 (11:21→21:51)
[2022-09-14 11:26] LABS: Alanine Aminotransferase 153 U/L (16-61); Albumin 2.5 g/dL (3.4-5.0); Anion Gap 18 (5-15); Aspartate Aminotransferase 349 U/L (15-37); BUN/Creatinine Ratio 12.1; Blood Urea Nitrogen 31 mg/dL (7-18); Calcium 7.2 mg/dL (8.5-10.1); Carbon Dioxide 12 mmol/L (21-32); Chloride 108 mmol/L (98-107); GFR African American 32 mL/min; GFR Non-African American 27 mL/min; Magnesium 2.4 mg/dL (1.6-2.6); Potassium 4.8 mmol/L (3.5-5.1); Sodium 138 mmol/L (136-145)
[2022-09-14 11:29] LABS: Alkaline Phosphatase 110 U/L (45-117); Bilirubin, Total 0.5 mg/dL (0.2-1.0); Total Protein 5.2 g/dL (6.4-8.2)
[2022-09-14 11:49] LABS: Glucose 774 mg/dL (74-106)
[2022-09-14 13:32] LABS: Band Neutrophils % (manual) 20; Lymphocytes % (manual) 13 (10.0-50.0); Metamyelocytes % 1; Monocytes % (manual) 2 (0-12); Myelocytes % 4
[2022-09-14 14:38] LABS: Anion Gap 16 (5-15); BUN/Creatinine Ratio 12.7; Blood Urea Nitrogen 33 mg/dL (7-18); Calcium 7.4 mg/dL (8.5-10.1); Carbon Dioxide 14 mmol/L (21-32); Chloride 110 mmol/L (98-107); GFR African American 32 mL/min; GFR Non-African American 26 mL/min; Potassium 4.3 mmol/L (3.5-5.1); Sodium 140 mmol/L (136-145)
[2022-09-14 14:39] LABS: Glucose > 500 mg/dL (74-106)
[2022-09-14 16:45] LABS: Calcium 7.6 mg/dL (8.5-10.1); Potassium 3.2 mmol/L (3.5-5.1)
[2022-09-14] MEDS: POTASSIUM CHL 20MEQ/100ML 100 ML IV SCH ×3 (18:35→22:34)
[2022-09-14] MEDS: fentaNYL Drip 2500mCg/250mlNS 250 ML IV SCH (22:30)
[2022-09-14] MEDS: MIDAZOLAM DRIP 50 mg/50mL 50 ML IV SCH (22:30)
[2022-09-14 23:27] LABS: BUN/Creatinine Ratio 14.4; Calcium 7.5 mg/dL (8.5-10.1); Potassium 3.4 mmol/L (3.5-5.1)
[2022-09-15] VITALS (12 sets, daily range): BP systolic 114–138; BP diastolic 60–84
[2022-09-15] MEDS: ACCU-CHEK COMFORT CURVE STRIP VI SCH ×14 (00:29→20:19)
[2022-09-15] MEDS: SODIUM CHLORIDE 0.9% 1,000 ML IV SCH ×4 (00:37→18:55)
[2022-09-15] MEDS: NOREPINEPHRINE 8 MG/250ML KIT 250 ML IV SCH ×2 (02:45→08:15)
[2022-09-15 03:23] LABS: Protein, Urine 42.3 mg/dL (0.0-11.9)
[2022-09-15 03:34] LABS: Urine Amorphous Crystal FEW /hpf (None Seen); Urine Bacteria MANY /hpf (None Seen); Urine Blood Negative /uL (Negative); Urine Mucus FEW (None Seen); Urine Specific Gravity 1.015 (1.001-1.035); Urine WBC 250 /hpf (0 - 3); Urine WBC Clumps PRESENT /hpf (None Seen)
[2022-09-15] MEDS: PIPERACILLIN-TAZOB 3.375GM 100 ML IV SCH ×2 (03:56→09:46)
[2022-09-15 06:55] LABS: Basophils # (auto) 0 10 ^3/uL (0-0.2); Basophils % (auto) 0.3 % (0.0-2.0); Eosinophils # (auto) 0 10 ^3/uL (0-0.8); Eosinophils % (auto) 0.3 % (0.0-7.0); Hematocrit 34.3 % (41.0-53.0); Hemoglobin 11.7 g/dL (13.5-17.5); Lymphocytes # (auto) 1.1 10 ^3/uL (0.4-5.4); Lymphocytes % (auto) 12.6 % (10.0-50.0); Mean Corpuscular Hemoglobin 31.9 pg (28.0-32.0); Mean Corpuscular Hgb Conc. 34.1 g/dL (32.0-36.0); Mean Corpuscular Volume 93.5 fL (80.0-100.0); Monocytes # (auto) 0.8 10 ^3/uL (0-1.3); Monocytes % (auto) 8.7 % (0.0-12.0); Neutrophils % (auto) 78.1 % (37.0-80.0); Nucleated Red Blood Cells % 0.1 %; Red Blood Cells 3.66 10^6/uL (4.5-5.90); Red Cell Distribution Width 17.5 % (11.8-14.3)
[2022-09-15 07:00] LABS: Potassium 3.8 mmol/L (3.5-5.1)
[2022-09-15 07:12] LABS: BUN/Creatinine Ratio 13.7; Calcium 7.4 mg/dL (8.5-10.1); Phosphorus 1.4 mg/dL (2.5-4.90); Uric Acid 5.9 mg/dL (3.5-7.2)
[2022-09-15] MEDS ORDERED: DEXTROSE (50%) 50ML SYRG IV PRN (07:30)
[2022-09-15] MEDS: InsuLIN REG 1unit/0.01ml Soln (100units/ml) SC SCH ×4 (08:14→20:27)
[2022-09-15] MEDS: MIDAZOLAM DRIP 50 mg/50mL 50 ML IV SCH ×2 (08:34→13:19)
[2022-09-15 10:29] LABS: BUN/Creatinine Ratio 11.8; Calcium 7.1 mg/dL (8.5-10.1); Potassium 3.5 mmol/L (3.5-5.1)
[2022-09-15] MEDS: fentaNYL Drip 2500mCg/250mlNS 250 ML IV SCH (13:00)
[2022-09-15] MEDS ORDERED: VANCOMYCIN 1GM/250ML 250 ML IV ONE (15:00)
[2022-09-15] MEDS ORDERED: PIPERACILLIN-TAZOB 3.375GM 100 ML IV SCH (17:00)
[2022-09-15] MEDS: PIPERACILLIN-TAZOB 2.25GM 50 ML IV SCH (19:10)
[2022-09-16] VITALS (11 sets, daily range): BP systolic 124–166; BP diastolic 50–76
[2022-09-16] MEDS: SODIUM CHLORIDE 0.9% 1,000 ML IV SCH ×2 (00:30→08:24)
[2022-09-16] MEDS: ACCU-CHEK COMFORT CURVE STRIP VI SCH ×6 (01:04→20:27)
[2022-09-16] MEDS: PIPERACILLIN-TAZOB 2.25GM 50 ML IV SCH ×2 (01:11→06:20)
[2022-09-16] MEDS: D5W/SOD CHL 0.45% 1,000 ML IV SCH ×2 (01:14→16:12)
[2022-09-16] MEDS: InsuLIN REG 1unit/0.01ml Soln (100units/ml) SC SCH ×6 (01:18→20:33)
[2022-09-16 06:17] LABS: Basophils # (auto) 0.1 10 ^3/uL (0-0.2); Basophils % (auto) 0.9 % (0.0-2.0); Eosinophils # (auto) 0.2 10 ^3/uL (0-0.8); Eosinophils % (auto) 2.4 % (0.0-7.0); Hematocrit 32.5 % (41.0-53.0); Hemoglobin 10.9 g/dL (13.5-17.5); Lymphocytes # (auto) 1.4 10 ^3/uL (0.4-5.4); Lymphocytes % (auto) 21.2 % (10.0-50.0); Mean Corpuscular Hemoglobin 31.6 pg (28.0-32.0); Mean Corpuscular Hgb Conc. 33.7 g/dL (32.0-36.0); Mean Corpuscular Volume 93.8 fL (80.0-100.0); Monocytes # (auto) 0.3 10 ^3/uL (0-1.3); Monocytes % (auto) 4.9 % (0.0-12.0); Neutrophils # (auto) 4.8 10 ^3/uL (1.6-8.6); Neutrophils % (auto) 70.6 % (37.0-80.0); Red Blood Cells 3.46 10^6/uL (4.5-5.90); Red Cell Distribution Width 17.9 % (11.8-14.3); White Blood Cell 6.7 10^3/uL (4.4-10.8)
[2022-09-16 06:24] LABS: Calcium 7.1 mg/dL (8.5-10.1); Potassium 3.4 mmol/L (3.5-5.1)
[2022-09-16 06:26] LABS: BUN/Creatinine Ratio 12.4
[2022-09-16] MEDS: NOREPINEPHRINE 8 MG/250ML KIT 250 ML IV SCH (08:15)
[2022-09-16] MEDS: DOXYCYCLINE 100MG/250ML 250 ML IV SCH ×2 (09:47→22:40)
[2022-09-16] MEDS: POTASSIUM CHL 20MEQ/100ML 100 ML IV SCH ×2 (13:41→15:31)
[2022-09-16] MEDS: hydrALAZINE HCL 20 MG/ML VL IV PRN (15:57)
[2022-09-16] MEDS ORDERED: SODIUM BICARBONATE 8.4 % INJ 50ML VIAL IV ONE (17:15)
[2022-09-16] MEDS: INSULIN LANTUS (GLARGINE) 1 /0.01ml (100units/ml) SC SCH (18:32)
[2022-09-16] MEDS: fentaNYL Drip 2500mCg/250mlNS 250 ML IV SCH (22:30)
[2022-09-16] MEDS: MIDAZOLAM DRIP 50 mg/50mL 50 ML IV SCH (22:30)
[2022-09-17] VITALS (14 sets, daily range): BP systolic 136–177; BP diastolic 58–89
[2022-09-17] MEDS: ACCU-CHEK COMFORT CURVE STRIP VI SCH ×6 (00:05→20:21)
[2022-09-17] MEDS: hydrALAZINE HCL 20 MG/ML VL IV PRN ×2 (00:10→22:38)
[2022-09-17] MEDS: InsuLIN REG 1unit/0.01ml Soln (100units/ml) SC SCH ×6 (00:11→20:00)
[2022-09-17 04:57] LABS: Basophils # (auto) 0 10 ^3/uL (0-0.2); Basophils % (auto) 0.8 % (0.0-2.0); Eosinophils # (auto) 0 10 ^3/uL (0-0.8); Eosinophils % (auto) 0.8 % (0.0-7.0); Hematocrit 31.4 % (41.0-53.0); Hemoglobin 10.9 g/dL (13.5-17.5); Lymphocytes # (auto) 0.8 10 ^3/uL (0.4-5.4); Lymphocytes % (auto) 16.6 % (10.0-50.0); Mean Corpuscular Hemoglobin 31.4 pg (28.0-32.0); Mean Corpuscular Hgb Conc. 34.7 g/dL (32.0-36.0); Mean Corpuscular Volume 90.8 fL (80.0-100.0); Monocytes # (auto) 0.4 10 ^3/uL (0-1.3); Neutrophils # (auto) 3.7 10 ^3/uL (1.6-8.6); Neutrophils % (auto) 73.8 % (37.0-80.0); Red Blood Cells 3.46 10^6/uL (4.5-5.90); Red Cell Distribution Width 17.5 % (11.8-14.3)
[2022-09-17 05:15] LABS: BUN/Creatinine Ratio 13.6; Calcium 7.4 mg/dL (8.5-10.1); Potassium 3.2 mmol/L (3.5-5.1)
[2022-09-17] MEDS: NOREPINEPHRINE 8 MG/250ML KIT 250 ML IV SCH (08:15)
[2022-09-17] MEDS: POTASSIUM CHL 20MEQ/100ML 100 ML IV SCH ×2 (11:12→13:02)
[2022-09-17] MEDS: DOXYCYCLINE 100MG/250ML 250 ML IV SCH ×2 (11:12→22:02)
[2022-09-17] MEDS: D5W 5% 1,000 ML IV SCH ×2 (11:12→22:02)
[2022-09-17] MEDS: fentaNYL Drip 2500mCg/250mlNS 250 ML IV SCH (18:15)
[2022-09-17] MEDS: INSULIN LANTUS (GLARGINE) 1 /0.01ml (100units/ml) SC SCH (18:35)
[2022-09-17] MEDS: MIDAZOLAM DRIP 50 mg/50mL 50 ML IV SCH (22:20)
[2022-09-18] VITALS (59 sets, daily range): BP systolic 112–172; BP diastolic 63–96
[2022-09-18] MEDS: ACCU-CHEK COMFORT CURVE STRIP VI SCH ×6 (00:08→20:26)
[2022-09-18] MEDS: InsuLIN REG 1unit/0.01ml Soln (100units/ml) SC SCH ×6 (00:10→20:30)
[2022-09-18 05:14] LABS: Basophils # (auto) 0 10 ^3/uL (0-0.2); Basophils % (auto) 1.1 % (0.0-2.0); Eosinophils # (auto) 0.1 10 ^3/uL (0-0.8); Eosinophils % (auto) 2.4 % (0.0-7.0); Hematocrit 30.3 % (41.0-53.0); Hemoglobin 10.4 g/dL (13.5-17.5); Lymphocytes # (auto) 1.4 10 ^3/uL (0.4-5.4); Lymphocytes % (auto) 30.1 % (10.0-50.0); Mean Corpuscular Hemoglobin 31.3 pg (28.0-32.0); Mean Corpuscular Hgb Conc. 34.2 g/dL (32.0-36.0); Mean Corpuscular Volume 91.7 fL (80.0-100.0); Monocytes # (auto) 0.5 10 ^3/uL (0-1.3); Monocytes % (auto) 10.8 % (0.0-12.0); Neutrophils # (auto) 2.5 10 ^3/uL (1.6-8.6); Neutrophils % (auto) 55.6 % (37.0-80.0); Nucleated Red Blood Cells % 0.1 %; Red Cell Distribution Width 17.1 % (11.8-14.3); White Blood Cell 4.5 10^3/uL (4.4-10.8)
[2022-09-18 05:19] LABS: Calcium 7.4 mg/dL (8.5-10.1); Potassium 3.2 mmol/L (3.5-5.1)
[2022-09-18 05:21] LABS: BUN/Creatinine Ratio 15.3
[2022-09-18] MEDS: NOREPINEPHRINE 8 MG/250ML KIT 250 ML IV SCH (08:15)
[2022-09-18] MEDS: POTASSIUM CHL 20MEQ/100ML 100 ML IV SCH ×2 (10:23→12:00)
[2022-09-18] MEDS: D5W 5% 1,000 ML IV SCH (10:24)
[2022-09-18] MEDS: DOXYCYCLINE 100MG/250ML 250 ML IV SCH ×2 (10:24→22:23)
[2022-09-18] MEDS: fentaNYL Drip 2500mCg/250mlNS 250 ML IV SCH ×2 (13:00→17:32)
[2022-09-18] MEDS: MIDAZOLAM DRIP 50 mg/50mL 50 ML IV SCH ×2 (14:00→22:23)
[2022-09-18] MEDS: INSULIN LANTUS (GLARGINE) 1 /0.01ml (100units/ml) SC SCH (17:20)
[2022-09-19] VITALS (88 sets, daily range): BP systolic 113–166; BP diastolic 57–98
[2022-09-19] MEDS: ACCU-CHEK COMFORT CURVE STRIP VI SCH ×6 (00:31→19:40)
[2022-09-19] MEDS: InsuLIN REG 1unit/0.01ml Soln (100units/ml) SC SCH ×6 (00:32→19:41)
[2022-09-19] MEDS: D5W 5% 1,000 ML IV SCH ×2 (05:04→13:20)
[2022-09-19] MEDS: fentaNYL Drip 2500mCg/250mlNS 250 ML IV SCH (05:14)
[2022-09-19] MEDS: hydrALAZINE HCL 20 MG/ML VL IV PRN ×2 (06:28→22:54)
[2022-09-19 06:34] LABS: Basophils # (auto) 0 10 ^3/uL (0-0.2); Basophils % (auto) 0.7 % (0.0-2.0); Eosinophils # (auto) 0.3 10 ^3/uL (0-0.8); Eosinophils % (auto) 4.7 % (0.0-7.0); Hematocrit 31.2 % (41.0-53.0); Hemoglobin 10.8 g/dL (13.5-17.5); Lymphocytes # (auto) 2.1 10 ^3/uL (0.4-5.4); Mean Corpuscular Hemoglobin 31.5 pg (28.0-32.0); Mean Corpuscular Hgb Conc. 34.8 g/dL (32.0-36.0); Mean Corpuscular Volume 90.5 fL (80.0-100.0); Monocytes % (auto) 14.3 % (0.0-12.0); Neutrophils # (auto) 3.3 10 ^3/uL (1.6-8.6); Neutrophils % (auto) 48.3 % (37.0-80.0); Nucleated Red Blood Cells % 0.1 %; Red Blood Cells 3.44 10^6/uL (4.5-5.90); Red Cell Distribution Width 16.9 % (11.8-14.3); White Blood Cell 6.7 10^3/uL (4.4-10.8)
[2022-09-19 07:01] LABS: BUN/Creatinine Ratio 14.7; Calcium 7.3 mg/dL (8.5-10.1); Potassium 3.3 mmol/L (3.5-5.1)
[2022-09-19] MEDS: NOREPINEPHRINE 8 MG/250ML KIT 250 ML IV SCH (08:15)
[2022-09-19] MEDS: ENOXAPARIN SOD 40 MG/0.4 ML SYRINGE SC SCH (09:27)
[2022-09-19] MEDS: CARVEDILOL 3.125 MG TAB NG SCH ×2 (09:28→21:36)
[2022-09-19] MEDS: DOXYCYCLINE 100MG/250ML 250 ML IV SCH ×2 (10:00→21:36)
[2022-09-19] MEDS ORDERED: POTASSIUM CHL 20MEQ/100ML 100 ML IV ONE (14:15)
[2022-09-19] MEDS: POTASSIUM CHL 20MEQ/100ML 100 ML IV SCH ×2 (16:35→19:00)
[2022-09-19] MEDS: INSULIN LANTUS (GLARGINE) 1 /0.01ml (100units/ml) SC SCH (17:50)
[2022-09-19] MEDS: MIDAZOLAM DRIP 50 mg/50mL 50 ML IV SCH (21:24)
[2022-09-20] VITALS (71 sets, daily range): BP systolic 79–174; BP diastolic 43–94
[2022-09-20] MEDS: D5W 5% 1,000 ML IV SCH (02:40)
[2022-09-20] MEDS: ACCU-CHEK COMFORT CURVE STRIP VI SCH ×6 (03:31→22:00)
[2022-09-20] MEDS: InsuLIN REG 1unit/0.01ml Soln (100units/ml) SC SCH ×6 (03:32→22:00)
[2022-09-20 05:35] LABS: BUN/Creatinine Ratio 18.1; Calcium 7.5 mg/dL (8.5-10.1); Potassium 4.1 mmol/L (3.5-5.1)
[2022-09-20] MEDS: NOREPINEPHRINE 8 MG/250ML KIT 250 ML IV SCH (08:52)
[2022-09-20 08:56] LABS: Basophils # (auto) 0 10 ^3/uL (0-0.2); Basophils % (auto) 0.5 % (0.0-2.0); Eosinophils # (auto) 0.2 10 ^3/uL (0-0.8); Eosinophils % (auto) 2.7 % (0.0-7.0); Hematocrit 32.6 % (41.0-53.0); Hemoglobin 11.1 g/dL (13.5-17.5); Lymphocytes # (auto) 1.1 10 ^3/uL (0.4-5.4); Lymphocytes % (auto) 16.3 % (10.0-50.0); Mean Corpuscular Hemoglobin 31.3 pg (28.0-32.0); Mean Corpuscular Hgb Conc. 34.1 g/dL (32.0-36.0); Mean Corpuscular Volume 91.7 fL (80.0-100.0); Monocytes # (auto) 1.1 10 ^3/uL (0-1.3); Monocytes % (auto) 16.5 % (0.0-12.0); Neutrophils # (auto) 4.3 10 ^3/uL (1.6-8.6); Nucleated Red Blood Cells % 0.1 %; Red Blood Cells 3.55 10^6/uL (4.5-5.90); Red Cell Distribution Width 16.5 % (11.8-14.3); White Blood Cell 6.8 10^3/uL (4.4-10.8)
[2022-09-20] MEDS: CARVEDILOL 3.125 MG TAB NG SCH ×2 (10:00→19:55)
[2022-09-20] MEDS: ENOXAPARIN SOD 40 MG/0.4 ML SYRINGE SC SCH (10:00)
[2022-09-20] MEDS: hydrALAZINE HCL 20 MG/ML VL IV PRN ×2 (10:19→17:51)
[2022-09-20] MEDS: DOXYCYCLINE 100MG/250ML 250 ML IV SCH ×2 (10:31→21:20)
[2022-09-20] MEDS: INSULIN LANTUS (GLARGINE) 1 /0.01ml (100units/ml) SC SCH (17:54)
[2022-09-20] MEDS: MIDAZOLAM DRIP 50 mg/50mL 50 ML IV SCH (22:30)
[2022-09-21] VITALS (35 sets, daily range): BP systolic 105–175; BP diastolic 54–85
[2022-09-21] MEDS ORDERED: ONDANSETRON HCL 4 MG/2 ML VIAL ONE (00:52)
[2022-09-21] MEDS ORDERED: MORPHINE SULFATE INJ 2 MG/ml SYRG IV PRN (01:00)
[2022-09-21] MEDS: ONDANSETRON HCL 4 MG/2 ML VIAL IV PRN ×2 (01:03→07:06)
[2022-09-21] MEDS: InsuLIN REG 1unit/0.01ml Soln (100units/ml) SC SCH ×4 (05:23→23:18)
[2022-09-21] MEDS: ACCU-CHEK COMFORT CURVE STRIP VI SCH ×4 (05:23→23:12)
[2022-09-21 05:24] LABS: Basophils # (auto) 0 10 ^3/uL (0-0.2); Basophils % (auto) 0.5 % (0.0-2.0); Eosinophils # (auto) 0 10 ^3/uL (0-0.8); Eosinophils % (auto) 0.2 % (0.0-7.0); Hematocrit 30.2 % (41.0-53.0); Hemoglobin 10.3 g/dL (13.5-17.5); Lymphocytes # (auto) 0.8 10 ^3/uL (0.4-5.4); Lymphocytes % (auto) 12.2 % (10.0-50.0); Mean Corpuscular Hemoglobin 31.3 pg (28.0-32.0); Mean Corpuscular Volume 92.3 fL (80.0-100.0); Monocytes % (auto) 15.7 % (0.0-12.0); Neutrophils # (auto) 4.7 10 ^3/uL (1.6-8.6); Neutrophils % (auto) 71.4 % (37.0-80.0); Nucleated Red Blood Cells % 0.1 %; Red Blood Cells 3.28 10^6/uL (4.5-5.90); Red Cell Distribution Width 16.2 % (11.8-14.3); White Blood Cell 6.5 10^3/uL (4.4-10.8)
[2022-09-21 05:40] LABS: Calcium 7.9 mg/dL (8.5-10.1)
[2022-09-21] MEDS: NOREPINEPHRINE 8 MG/250ML KIT 250 ML IV SCH (08:15)
[2022-09-21] MEDS: CARVEDILOL 3.125 MG TAB NG SCH ×3 (09:00→23:13)
[2022-09-21] MEDS: ENOXAPARIN SOD 40 MG/0.4 ML SYRINGE SC SCH (09:25)
[2022-09-21] MEDS: hydrALAZINE HCL 20 MG/ML VL IV PRN (09:26)
[2022-09-21] MEDS: DOXYCYCLINE 100MG/250ML 250 ML IV SCH (09:28)
[2022-09-21] MEDS: INSULIN LANTUS (GLARGINE) 1 /0.01ml (100units/ml) SC SCH (18:45)
== END 2022-09-21 23:56 | DRG 207 ==
LOC: EDBD 21:11 → ER 21:14 → OVERFLOW 09-14 08:08 → ICU CENTRL 09-17 23:44 → TELE-CENTR 09-21 16:39
PROVIDERS: ADMIT Internal Medicine; ATTEND Internal Medicine
PROC: 5A1955Z Respiratory Ventilation, Greater than 96 Consecutive Hours (ICD-10-PCS; principal; 2022-09-14)
PROC: 0BH17EZ Insertion of Endotracheal Airway into Trachea, Via Natural or Artificial Opening (ICD-10-PCS; 2022-09-14)
PROC: 05HB33Z Insertion of Infusion Device into Right Basilic Vein, Percutaneous Approach (ICD-10-PCS; 2022-09-14)
PROC: B54MZZA Ultrasonography of Right Upper Extremity Veins, Guidance (ICD-10-PCS; 2022-09-14)
DX: J96.01 Acute respiratory failure with hypoxia (principal); E11.10 Type 2 diabetes mellitus with ketoacidosis without coma; N17.0 Acute kidney failure with tubular necrosis; E87.0 Hyperosmolality and hypernatremia; D64.9 Anemia, unspecified; D72.829 Elevated white blood cell count, unspecified; E86.0 Dehydration; E87.5 Hyperkalemia; I95.9 Hypotension, unspecified; Z20.822 Contact with and (suspected) exposure to COVID-19; E78.5 Hyperlipidemia, unspecified; F03.90 Unspecified dementia, unspecified severity, without behavioral disturbance, psychotic disturbance, mood disturbance, and anxiety; I10 Essential (primary) hypertension; I25.2 Old myocardial infarction; Z79.4 Long term (current) use of insulin; Z80.6 Family history of leukemia; Z83.3 Family history of diabetes mellitus; Z86.73 Personal history of transient ischemic attack (TIA), and cerebral infarction without residual deficits
CPT/HCPCS: 31500; 36415; 36600; 71045; 80048; 80053; 80202; 80307; 80329; 81001; 82010; 82550; 82553; 82570; 82805; 82962; 83036; 83605; 83690; 83735; 83880; 83930; 84100; 84156; 84300; 84443; 84484; 84550; 85007; 85025; 85027; 85610; 85730; 87040; 87070; 87081; 87086; 87205; 87426; 92610; 93005; 94002; 94003; 96361; 96365; 96367; 96368; 97163; 99291; G0378; J1815; J2250; J2405; J2543; J3480; J3490; J7060

== ENCOUNTER 2024-04-24 04:29 | Inpatient (IN) | payer OTHER, MEDICAID ==
[~2024-04-24] VITALS: Ht 175.3 cm; Wt 65.4 kg
[~2024-04-24 04:29] MED LIST changes: +GABA-1250 PO; -GABA300C10 PO
[2024-04-24 05:11] LABS: COVID19 ANTIGEN SOFIA FIA NEGATIVE (NEGATIVE); Rapid Influenza A Negative (Negative); Rapid Influenza B Negative (Negative)
[2024-04-24 08:35] LABS: Basophils # (auto) 0 10 ^3/uL (0-0.2); Basophils % (auto) 0.3 % (0.0-2.0); Eosinophils # (auto) 0 10 ^3/uL (0-0.8); Eosinophils % (auto) 0.1 % (0.0-7.0); Hematocrit 44.9 % (41.0-53.0); Lymphocytes # (auto) 1.1 10 ^3/uL (0.4-5.4); Lymphocytes % (auto) 10.3 % (10.0-50.0); Mean Corpuscular Hgb Conc. 31.2 g/dL (32.0-36.0); Mean Corpuscular Volume 99.6 fL (80.0-100.0); Monocytes # (auto) 0.5 10 ^3/uL (0-1.3); Monocytes % (auto) 4.6 % (0.0-12.0); Neutrophils # (auto) 8.8 10 ^3/uL (1.6-8.6); Neutrophils % (auto) 84.7 % (37.0-80.0); Platelet Count (auto) 167 10^3/uL (140-450); Red Blood Cells 4.51 10^6/uL (4.5-5.90); Red Cell Distribution Width 16.1 % (11.8-14.3); White Blood Cell 10.5 10^3/uL (4.4-10.8)
[2024-04-24] MEDS: SODIUM CHLORIDE 0.9% 1,000 ML IVB ONE (08:51)
[2024-04-24] MEDS: METOCLOPRAMIDE HCL 5MG/ml INJ 2ml VIAL IV ONE (08:51)
[2024-04-24 09:03] LABS: Alanine Aminotransferase 24 U/L (7-40); Albumin 4.4 g/dL (3.2-4.8); Alkaline Phosphatase 72 U/L (46-116); Anion Gap 22.00001 (5-15); Aspartate Aminotransferase 22 U/L (13-40); BUN/Creatinine Ratio 14.2 (10.0-20.0); Bilirubin, Total 0.6 mg/dL (0.2-1.0); Blood Urea Nitrogen 28 mg/dL (9-23); Calcium 9.3 mg/dL (8.7-10.4); Chloride 102 mmol/L (98-107); Glucose 340 mg/dL (74-106); Lipase 25 U/L (12-53); Magnesium 2.7 mg/dL (1.6-2.6); Sodium 134 mmol/L (136-145); Total Protein 6.8 g/dL (5.7-8.2)
[2024-04-24 09:10] LABS: Carbon Dioxide < 10 mmol/L (20-30); Potassium 5.7 mmol/L (3.5-5.1)
[2024-04-24 09:40] VITALS: PULSE 110; RESP 25; O2SAT 100
[2024-04-24 11:04] LABS: Urine Bacteria None Seen /hpf (None Seen)
[2024-04-24] MEDS ORDERED: DEXTROSE (50%) 50ML SYRG IV PRN (11:30)
[2024-04-24 11:45] LABS: Urine Blood 1+ /uL (Negative); Urine Clarity Clear (Clear); Urine Color Light-Yellow (Yellow); Urine Mucus FEW (None Seen); Urine Protein, UAD 1+ (Negative); Urine Specific Gravity 1.022 (1.001-1.035); Urine Urobilinogen Normal (Negative); Urine WBC 1 /hpf (0 - 3); Urine pH 5.5 (5.0-9.0)
[2024-04-24] MEDS ORDERED: SODIUM CHLORIDE 0.9% 1,000 ML IV SCH (11:45)
[2024-04-24] MEDS ORDERED: MORPHINE SULFATE INJ 2 MG/ml SYRG IV PRN ×2 (11:45)
[2024-04-24] MEDS ORDERED: NITROGLYCERIN 0.4 MG SL TAB SL PRN (11:45)
[2024-04-24] MEDS: SODIUM CHLORIDE 0.9% 1,000 ML IV SCH ×3 (11:55→17:04)
[2024-04-24] MEDS: INSULIN LANTUS (GLARGINE) 1 /0.01ml (100units/ml) SC ONE (11:56)
[2024-04-24] MEDS: INSULIN DRIP 100 UNIT/100ML 100 ML IV SCH (11:57)
[2024-04-24] MEDS: ACCU-CHEK COMFORT CURVE STRIP VI SCH (12:05)
[2024-04-24 12:11] LABS: Chloride 105 mmol/L (98-107); Potassium 5.5 mmol/L (3.5-5.1); Sodium 134 mmol/L (136-145)
[2024-04-24 12:12] LABS: Anion Gap 19.00001 (5-15)
[2024-04-24 12:13] LABS: Calcium 9.1 mg/dL (8.7-10.4)
[2024-04-24 12:17] LABS: BUN/Creatinine Ratio 11.1 (10.0-20.0); Blood Urea Nitrogen 21 mg/dL (9-23); Glucose 380 mg/dL (74-106)
[2024-04-24 12:20] LABS: Phosphorus 4.8 mg/dL (2.4-5.1)
[2024-04-24 12:22] LABS: Carbon Dioxide < 10 mmol/L (20-30)
[2024-04-24] MEDS: SODIUM CHLORIDE 0.9% 2,000 ML IV ONE (13:01)
[2024-04-24] MEDS: PIPERACILLIN-TAZOB 3.375GM 100 ML IV SCH ×2 (13:10→20:33)
[2024-04-24] MEDS: SODIUM BICARB 8.4% 50Meq/50ml SYR Vial IV ONE ×2 (13:16→22:53)
[2024-04-24] MEDS: SOD CHL 0.45% 1,000 ML IV SCH (14:06)
[2024-04-24 14:27] LABS: Anion Gap 20.00001 (5-15); Chloride 110 mmol/L (98-107); Sodium 140 mmol/L (136-145)
[2024-04-24] MEDS: ONDANSETRON HCL 4 MG/2 ML VIAL IV ONE (14:29)
[2024-04-24 14:33] LABS: BUN/Creatinine Ratio 11.7 (10.0-20.0); Blood Urea Nitrogen 19 mg/dL (9-23); Glucose 315 mg/dL (74-106)
[2024-04-24 14:45] LABS: Carbon Dioxide < 10 mmol/L (20-30)
[2024-04-24] MEDS ORDERED: PIPERACILLIN-TAZOB 3.375GM 100 ML IV SCH (16:00)
[2024-04-24 18:29] LABS: Chloride 114 mmol/L (98-107); Potassium 4.5 mmol/L (3.5-5.1); Sodium 141 mmol/L (136-145)
[2024-04-24 18:30] LABS: Anion Gap 17.00001 (5-15)
[2024-04-24 18:31] LABS: Calcium 7.8 mg/dL (8.7-10.4)
[2024-04-24 18:36] LABS: BUN/Creatinine Ratio 13.6 (10.0-20.0); Blood Urea Nitrogen 20 mg/dL (9-23)
[2024-04-24 19:08] LABS: Glucose 188 mg/dL (74-106)
[2024-04-24 19:11] LABS: Carbon Dioxide < 10 mmol/L (20-30)
[2024-04-24 19:30] VITALS: PULSE 103; RESP 18; O2SAT 98
[2024-04-24 22:29] LABS: Chloride 116 mmol/L (98-107); Sodium 143 mmol/L (136-145)
[2024-04-24 22:30] LABS: Anion Gap 16 (5-15); Calcium 7.9 mg/dL (8.7-10.4); Carbon Dioxide 11 mmol/L (20-30)
[2024-04-24 22:35] LABS: BUN/Creatinine Ratio 11.8 (10.0-20.0); Blood Urea Nitrogen 16 mg/dL (9-23); Glucose 108 mg/dL (74-106)
[2024-04-25] MEDS: D5W/SOD CHL 0.45% 1,000 ML IV SCH (00:13)
[2024-04-25 02:10] LABS: Chloride 114 mmol/L (98-107); Potassium 3.7 mmol/L (3.5-5.1); Sodium 145 mmol/L (136-145)
[2024-04-25 02:11] LABS: Anion Gap 17 (5-15); Carbon Dioxide 14 mmol/L (20-30)
[2024-04-25 02:12] LABS: Calcium 7.5 mg/dL (8.7-10.4)
[2024-04-25 02:16] LABS: BUN/Creatinine Ratio 12.8 (10.0-20.0); Blood Urea Nitrogen 16 mg/dL (9-23); Glucose 120 mg/dL (74-106)
[2024-04-25 03:50] LABS: Basophils # (auto) 0 10 ^3/uL (0-0.2); Basophils % (auto) 0.3 % (0.0-2.0); Eosinophils # (auto) 0 10 ^3/uL (0-0.8); Eosinophils % (auto) 0.2 % (0.0-7.0); Hematocrit 36.8 % (41.0-53.0); Hemoglobin 12.1 g/dL (13.5-17.5); Lymphocytes # (auto) 0.8 10 ^3/uL (0.4-5.4); Lymphocytes % (auto) 9.5 % (10.0-50.0); Mean Corpuscular Hemoglobin 30.7 pg (28.0-32.0); Mean Corpuscular Hgb Conc. 32.9 g/dL (32.0-36.0); Mean Corpuscular Volume 93.5 fL (80.0-100.0); Monocytes % (auto) 11.8 % (0.0-12.0); Neutrophils # (auto) 6.9 10 ^3/uL (1.6-8.6); Neutrophils % (auto) 78.2 % (37.0-80.0); Nucleated Red Blood Cells % 0.1 %; Platelet Count (auto) 122 10^3/uL (140-450); Red Blood Cells 3.94 10^6/uL (4.5-5.90); White Blood Cell 8.8 10^3/uL (4.4-10.8)
[2024-04-25 03:59] LABS: Chloride 114 mmol/L (98-107); Potassium 3.9 mmol/L (3.5-5.1); Sodium 145 mmol/L (136-145)
[2024-04-25 04:00] LABS: Anion Gap 19 (5-15); Carbon Dioxide 12 mmol/L (20-30)
[2024-04-25 04:01] LABS: Calcium 7.7 mg/dL (8.7-10.4)
[2024-04-25 04:05] LABS: BUN/Creatinine Ratio 11.4 (10.0-20.0); Blood Urea Nitrogen 14 mg/dL (9-23); Glucose 144 mg/dL (74-106)
[2024-04-25 07:10] VITALS: PULSE 93; RESP 17; O2SAT 97
[2024-04-25 10:29] LABS: Chloride 114 mmol/L (98-107); Potassium 3.8 mmol/L (3.5-5.1); Sodium 142 mmol/L (136-145)
[2024-04-25] MEDS: INSULIN LANTUS (GLARGINE) 1 /0.01ml (100units/ml) SC SCH (10:29)
[2024-04-25 10:30] LABS: Anion Gap 16 (5-15); Carbon Dioxide 12 mmol/L (20-30)
[2024-04-25 10:35] LABS: BUN/Creatinine Ratio 7.7 (10.0-20.0); Blood Urea Nitrogen 10 mg/dL (9-23); Glucose 236 mg/dL (74-106)
[2024-04-25] MEDS: ONDANSETRON HCL 4 MG/2 ML VIAL IV PRN (11:57)
[2024-04-25 14:34] LABS: Chloride 114 mmol/L (98-107); Potassium 3.7 mmol/L (3.5-5.1); Sodium 143 mmol/L (136-145)
[2024-04-25 14:35] LABS: Anion Gap 17 (5-15); Calcium 7.6 mg/dL (8.7-10.4); Carbon Dioxide 12 mmol/L (20-30)
[2024-04-25 14:40] LABS: BUN/Creatinine Ratio 7.7 (10.0-20.0); Blood Urea Nitrogen 10 mg/dL (9-23); Glucose 247 mg/dL (74-106)
[2024-04-25 18:29] LABS: Chloride 115 mmol/L (98-107); Potassium 3.3 mmol/L (3.5-5.1); Sodium 142 mmol/L (136-145)
[2024-04-25 18:30] LABS: Anion Gap 6 (5-15); Calcium 7.9 mg/dL (8.7-10.4); Carbon Dioxide 21 mmol/L (20-30)
[2024-04-25 18:35] LABS: BUN/Creatinine Ratio 8.9 (10.0-20.0); Blood Urea Nitrogen 11 mg/dL (9-23); Glucose 226 mg/dL (74-106)
[2024-04-25] MEDS: POTASSIUM EFFERVESENT TAB 25 MEQ PO ONE (20:14)
[2024-04-25] MEDS: INSULIN LANTUS (GLARGINE) 1 /0.01ml (100units/ml) SC ONE (20:15)
[2024-04-25] MEDS: SOD CHL 0.45% 1,000 ML IV SCH (21:19)
[2024-04-25] MEDS ORDERED: DEXTROSE (50%) 50ML SYRG IV PRN (21:30)
[2024-04-25 22:24] LABS: Chloride 115 mmol/L (98-107); Sodium 142 mmol/L (136-145)
[2024-04-25 22:25] LABS: Anion Gap 3 (5-15); Carbon Dioxide 24 mmol/L (20-30)
[2024-04-25 22:30] LABS: BUN/Creatinine Ratio 6.8 (10.0-20.0); Blood Urea Nitrogen 8 mg/dL (9-23); Glucose 174 mg/dL (74-106)
[2024-04-25] MEDS: ACCU-CHEK COMFORT CURVE STRIP VI SCH (23:43)
[2024-04-25] MEDS: InsuLIN REG 1unit/0.01ml Soln (100units/ml) SC SCH (23:47)
[2024-04-26 04:23] LABS: Basophils # (auto) 0 10 ^3/uL (0-0.2); Basophils % (auto) 0.8 % (0.0-2.0); Eosinophils # (auto) 0.1 10 ^3/uL (0-0.8); Eosinophils % (auto) 1.6 % (0.0-7.0); Hematocrit 33.6 % (41.0-53.0); Hemoglobin 11.5 g/dL (13.5-17.5); Lymphocytes # (auto) 1.8 10 ^3/uL (0.4-5.4); Lymphocytes % (auto) 33.6 % (10.0-50.0); Mean Corpuscular Hemoglobin 31.1 pg (28.0-32.0); Mean Corpuscular Hgb Conc. 34.3 g/dL (32.0-36.0); Mean Corpuscular Volume 90.5 fL (80.0-100.0); Monocytes # (auto) 0.5 10 ^3/uL (0-1.3); Monocytes % (auto) 9.7 % (0.0-12.0); Neutrophils % (auto) 54.3 % (37.0-80.0); Platelet Count (auto) 104 10^3/uL (140-450); Red Blood Cells 3.71 10^6/uL (4.5-5.90); Red Cell Distribution Width 14.7 % (11.8-14.3); White Blood Cell 5.5 10^3/uL (4.4-10.8)
[2024-04-26 04:28] LABS: Anion Gap 7 (5-15); Carbon Dioxide 23 mmol/L (20-30); Chloride 114 mmol/L (98-107); Potassium 3.1 mmol/L (3.5-5.1); Sodium 144 mmol/L (136-145)
[2024-04-26 04:29] LABS: Calcium 7.9 mg/dL (8.7-10.4)
[2024-04-26 04:34] LABS: BUN/Creatinine Ratio 6.8 (10.0-20.0); Blood Urea Nitrogen 7 mg/dL (9-23); Glucose 74 mg/dL (74-106)
[2024-04-26 09:30] VITALS: PULSE 82; RESP 11; O2SAT 95
[2024-04-26] MEDS: POTASSIUM EFFERVESENT TAB 25 MEQ PO ONE (10:19)
[2024-04-26 11:01] LABS: Anion Gap 4 (5-15); Carbon Dioxide 24 mmol/L (20-30); Chloride 103 mmol/L (98-107); Potassium 2.6 mmol/L (3.5-5.1)
[2024-04-26 11:08] LABS: BUN/Creatinine Ratio 6.6 (10.0-20.0); Blood Urea Nitrogen 5 mg/dL (9-23); Glucose 105 mg/dL (74-106)
[2024-04-26 11:13] LABS: Sodium 131 mmol/L (136-145)
[2024-04-26 14:41] LABS: Chloride 108 mmol/L (98-107); Potassium 3.6 mmol/L (3.5-5.1); Sodium 136 mmol/L (136-145)
[2024-04-26 14:42] LABS: Anion Gap 4 (5-15); Calcium 8.3 mg/dL (8.7-10.4); Carbon Dioxide 24 mmol/L (20-30)
[2024-04-26 14:47] LABS: BUN/Creatinine Ratio 7.2 (10.0-20.0); Blood Urea Nitrogen 7 mg/dL (9-23); Glucose 203 mg/dL (74-106)
[2024-04-26 17:58] VITALS: BP 129/78; PULSE 80; RESP 18; TEMP 98.1; O2SAT 95
== END 2024-04-26 17:25 | DRG 637 ==
LOC: ER 04:32 → TELE 11:47
PROVIDERS: ADMIT Internal Medicine; ATTEND Internal Medicine
DX: E11.10 Type 2 diabetes mellitus with ketoacidosis without coma (principal); N17.0 Acute kidney failure with tubular necrosis; E86.0 Dehydration; E11.21 Type 2 diabetes mellitus with diabetic nephropathy; E78.5 Hyperlipidemia, unspecified; E87.5 Hyperkalemia; F17.200 Nicotine dependence, unspecified, uncomplicated; F03.90 Unspecified dementia, unspecified severity, without behavioral disturbance, psychotic disturbance, mood disturbance, and anxiety; I10 Essential (primary) hypertension; Z20.822 Contact with and (suspected) exposure to COVID-19; I95.9 Hypotension, unspecified; Z79.4 Long term (current) use of insulin; Z79.899 Other long term (current) drug therapy; Z86.73 Personal history of transient ischemic attack (TIA), and cerebral infarction without residual deficits; Z80.6 Family history of leukemia; Z83.3 Family history of diabetes mellitus
CPT/HCPCS: 36415; 36600; 71046; 74176; 80048; 80053; 81001; 82010; 82805; 82962; 83036; 83690; 83735; 83930; 84100; 84484; 85025; 87040; 87426; 87804; 93005; 96361; 96374; 99291; G0378; J1815; J2405; J2543